=== PATIENT | female | born 2000 | race Asian ===

== ENCOUNTER → 2024-06-20 | Outpatient (REF) | payer OTHER ==
[2024-06-22 14:53] LABS: GC DNA AMPLIFICATION NEGATIVE (NEGATIVE)
== END ==
LOC: M LAB REF 08:42
PROVIDERS: ATTEND Physician Assistant
DX: B37.31 Acute candidiasis of vulva and vagina (principal)

== ENCOUNTER 2024-11-01 13:09 | Emergency (ER) | payer OTHER ==
[2024-11-01] MEDS ORDERED: PRENTAB9 PO (13:44)
== END 2024-11-01 13:12 | disposition admitted as inpatient to this hospital (09) ==
LOC: M ED 13:09
DX: Z53.21 Procedure and treatment not carried out due to patient leaving prior to being seen by health care provider (principal)

== ENCOUNTER 2024-11-01 13:17 | Outpatient (CLI) | payer OTHER ==
[~2024-11-01] VITALS: Ht 160 cm; Wt 63.5 kg
[2024-11-01] MEDS ORDERED: PRENTAB9 PO (13:44)
[2024-11-01 13:47] VITALS: BP 112/53
[2024-11-01 15:46] VITALS: BP 105/59
[2024-11-01 17:36] LABS: GC DNA AMPLIFICATION NEGATIVE (NEGATIVE)
== END 2024-11-01 15:47 | disposition home or self-care (01) ==
LOC: M LDO 13:17
PROVIDERS: ATTEND Obstetrics & Gynecology
DX: O26.852 Spotting complicating pregnancy, second trimester (principal); Z3A.21 21 weeks gestation of pregnancy
CPT/HCPCS: 87810; 87850; G0463

== ENCOUNTER → 2025-05-18 | Outpatient (REF) | payer OTHER ==
[~2025-05-18] MED LIST: ACET-683 PO; IBUP600T42 PO; PRENTAB9 PO
[2025-05-18 19:16] LABS: Trichomonas vaginalis (AMP) NOT DETECTED (NEGATIVE)
[2025-05-18 19:39] LABS: GC DNA AMPLIFICATION NEGATIVE (NEGATIVE)
== END ==
LOC: M LAB REF 17:12
PROVIDERS: ATTEND Nurse Practitioner Family
DX: R30.0 Dysuria (principal); Z11.3 Encounter for screening for infections with a predominantly sexual mode of transmission; N89.8 Other specified noninflammatory disorders of vagina